=== PATIENT | female | born 1950 | race African-American/Black ===

== ENCOUNTER 2019-03-15 09:06 | Inpatient (IN) | payer MEDICARE, OTHER ==
[~2019-03-15] VITALS: Ht 160 cm; Wt 79.4 kg
--- NOTE | ~2019-03-15 | HEMODYNAMI ---
PATIENT:JOSE CABALLERO MEDICAL RECORD: [id number] : 50 [id number] ADMISSION DATE: 03/15/19 Generatedon:03/16/20197:31 Patient name: JOSE CABALLERO Patient #: [id number] SSN: : 1950 Date of study: 03/15/2019 Page: Of Hemodynamic Procedure Report Patient Data Patient Demographics Procedure consent was obtained First Name: JOSE Gender: Female Last Name: FEDERICO : 1950 Patient #: [id number] Age: 68 year(s) Race: Black Additional ID: [id number] Contact details [address]: [address] [place] [address] State: [place] City: [place] Zip code: [address] Past Medical History Allergies: No known allergies Admission Admission Data Admission Date: 03/15/2019 Admission Time: 12:02 Arrival Date: 03/15/2019 Arrival Time: 0:00 Admit Source: Emergency Insurance Payor: Medicare department [facility] #: [id number] Room #: D.2115 Height (in.): 63 BSA: 1.83 (m2) Height (cm.): 160.02 BMI: 31.06 (kg/m2) Weight (lbs.): 175.36 Weight (kg.): 79.54 Lab Results Lab Result Date: 03/15/2019 Lab Result Time: 0:00 Biochemistry Name Units Result Min Max BUN mg/dl 19 --(----)*- 7 18 Creatinine mg/dl 1.5 --(----)-* 0.6 1.3 eGFR ml/min 44 *-(----)-- 90 120 AM CBC Name Units Result Min Max Hematocrit % 37.5 *-(----)-- 42 54 Hemoglobin g/dl 12.2 *-(----)-- 13.5 17.5 Procedure Procedure Types Cath Procedure Diagnostic Procedure [facility] w/Coronaries w/Grafts Sedation Charges Moderate Sedation up to 15 minutes PCI Procedure AMI/SVG/SCHEDULE CHECKER PTCA or Stent SVG-BMS/GONZÁLEZ Initial Hemochron ACT Test Procedure Description Procedure Date Procedure Date: 03/15/2019 Procedure Start Time: 11:09 Procedure End Time: 11:37 Procedure Staff Name Function Tonio Mccray MD Performing Physician [facility]uyita Sutton [facility] Monitor Ksenia Nieves RN Nurse Cristy Loredo RT Monitor Procedure Data Cath Procedure Fluoroscopy Diagnostic fluoroscopy Total fluoroscopy Time: 4.6 time: 4.6 min min Diagnostic fluoroscopy Total fluoroscopy dose: 853 dose: 853 mGy mGy Contrast Material Contrast Material Type Amount (ml) Isovue 370 128 Entry Location Entry Primary Successful Side Size Upsize Upsize Entry Closure Succes sful Closure Location (Fr) 1 (Fr) 2 (Fr) Remarks Device Remarks Femoral Right 5 Fr 6 Fr Exoseal artery Short Estimated blood loss: 10 ml Diagnostic catheters Device Type Used For End Catheter Placement MULTIPACK JL 4.0 5Fr Procedure catheter MULTIPACK 3DRC 5Fr Procedure catheter MULTIPACK Pigtail 5 Fr Procedure catheter Procedure Complications No complications Procedure Medications Medication Administration Route Dosage 0.9% NaCl I.V. 100 ml/hr Oxygen etCO2 Nasal cannula 2 l/min Lidocaine 2% added to field 20 Heparin Flush Bag added to field 2 bags (1000units/500ml NS) Versed I.V. 2 mg Fentanyl I.V. 50 mcg Heparin Bolus I.V. 5000 units Integrilin (Bolus I.V. 6.2 ml 2mg/ml) Integrilin (Bolus wasted 3.8 ml 2mg/ml) Fentanyl I.V. 50 mcg Cardene I.C. 300 mcg Hemodynamics Rest HGB: 12.2 (g/dl) Heart Rate: 81 (bpm) Pressure Samples Time Site Value (mmHg) Purpose Heart Use Rate(bpm) 11:16 LV 140/18,26 Snapshot 86 Snapshots Pre Cath Intra NCS Post Cath Vital Signs Time Heart Resp SPO2 etCO2 NIBP (mmHg) Rhythm Pain Sedation Rate (ipm) (%) (mmHg) Status Level (bpm) 10:48:31 88 21 98 30 154/95(138) NSR 0 (11) 10(A) , No pain 10:52:45 88 14 100 29.3 151/80(125) NSR 0 (11) 10(A) , No pain 10:57:05 93 12 99 29 131/76(102) NSR 0 (11) 10(A) , No pain 11:01:24 78 13 100 29 123/71(99) NSR 0 (11) 10(A) , No pain 11:05:39 76 11 100 28 125/68(97) NSR 0 (11) 10(A) , No pain 11:09:51 81 14 100 27 120/76(103) NSR 0 (11) 10(A) , No pain 11:14:36 84 12 100 33 121/94(113) NSR 0 (11) 10(A) , No pain 11:18:44 90 13 100 24.8 116/86(104) NSR 0 (11) 9(A) , No pain 11:22:54 79 12 100 27.8 124/74(105) NSR 0 (11) 9(A) , No pain 11:27:53 86 13 100 11.2 Measuring NSR 0 (11) 9(A) , No pain 11:27:57 84 13 100 26.3 120/75(99) NSR 0 (11) 10(A) , No pain 11:32:46 82 15 100 30 121/92(105) NSR 0 (11) 10(A) , No pain 11:36:58 89 16 100 28.5 130/75(105) NSR 0 (11) 10(A) , No pain Medications Time Medication Route Dose Verified Delivered Reason Notes Effectiveness by by 10:47:33 0.9% NaCl I.V. 100 Tonio Jeonga used for ml/hr Mahendra Ezequiel procedure MD AMANDA 10:47:40 Oxygen etCO2 2 Tonio Ksenia used for Nasal l/min Mahendra Ezequiel procedure cannula MD AMANDA 10:47:45 Lidocaine 2% added 20ml Tonio Elizalde for local to vial [facility] anesthetic field MD ROBLES 10:47:51 Heparin Flush added 2 Tonio Tonio used for Bag to bags [facility] procedure (1000units/500ml field MD ROBLES NS) 11:08:21 Versed I.V. 2 mg Tonio Jeonga for sedation St Koffi Nieves MD, RN 11:08:33 Fentanyl I.V. 50 Tonio Mccormack for sedation [facility] Koffi Nieves MD RN 11:13:35 Fentanyl I.V. 50 Tonio Mccormack for sedation [facility] Koffi Nieves MD RN 11:19:54 Heparin Bolus I.V. 5000 Tonio Mccormack for verif ied units Rutledge Ezequiel anticoagulation with Dr. ROBLES RN [place] 11:20:11 Integrilin I.V. 6.2 Tonio Jeonga for (Bolus 2mg/ml) ml St Koffi Nieves antiplatelet RN therapy 11:20:27 Integrilin wasted 3.8 Tonio Mccormack for (Bolus 2mg/ml) ml St Koffi Nieves antiplatelet RN therapy 11:29:34 Cardene I.C. 300 Tonio Elizalde for mcg [facility] Koffi vee MD, MD Procedure Log Time Note 10:13:45 Informed consent obtained and on chart 10:14:04 Procedure Status Elective Heart Cath (OP). 10:14:05 Time tracking: Regular hours (M-F 7:00 - 5:00) 10:14:08 Plan of Care:Hemodynamics will remain stable., Cardiac rhythm will remain stable., Comfort level will be maintained., Respiratory function will remain adequate., Patient/ family verbilizes understanding of procedure., Procedure tolerated without complication., Recovers from procedure without complications.. 10:14:15 H&P Date Dictated: 03/15/2019 ER History on chart.. 10:23:20 Risk of Mortality: .1 10:23:23 Risk of blood transfusion: 2.6 10:23:26 Risk of AUTUMN: 2.5 10:23:37 Lab results completed and on chart. 10:23:40 Stress Test: no; N/A ? 10:24:28 Lab Result : Hemoglobin 12.2 g/dl 10:24:28 Lab Result : Hematocrit 37.5 % 10:24:28 Lab Result : BUN 19 mg/dl 10:24:28 Lab Result : Creatinine 1.5 mg/dl 10:29:05 Lab Result : eGFR AM 44 ml/min 10:30:40 Admit Source: Emergency department 10:30:50 Diagnostic Cath Status : Emergency 10:31:10 Patient allergic to No known allergies 10:31:52 Ashlee Taveras RT(R) sent for patient. Start room use. 10:33:11 Arrival Date: 03/15/2019 12:00:00 AM 10:33:27 Insurance Payor : Medicare 10:33:56 Patient Height : 63 inches 10:34:00 Patient Weight : 175.36 lbs 10:44:01 Patient received from ED to CCL 1 Alert and oriented. Tansferred to table in Supine position. 10:44:02 Correct patient and procedure confirmed by team. 10:44:02 Warm blankets applied, and sudarshan hugger turned on for patient comfort. 10:44:03 ECG and BP/O2 sat monitors applied to patient. 10:44:05 Pre-op teaching completed and patient verbalized understanding. 10:44:05 Pre-procedure instructions explained to patient. 10:44:07 Family in waiting room. 10:44:11 Patient NPO since Breakfast. 10:44:13 Is the patient allergic to Iodine/contrast media? No. 10:44:14 Was the patient premedicated? Yes 10:44:17 Is patient on blood thinner?No 10:44:19 Patient diabetic? Yes. 10:44:21 If diabetic: On Metformin? Yes 10:44:28 If on Metformin: Last Dose? 03/14/2019 10:44:35 ----Pre-sedation anethsthesia assessment.---- 10:44:39 Snore? Yes 10:44:39 Previous problem with sedation/anesthesia? No ? 10:44:41 Sleep apnea? No 10:44:42 Deviated septum? No 10:44:43 Opens mouth fully? Yes 10:44:45 Sticks out tongue? Yes 10:44:47 Airway obstruction? No ? 10:44:51 Dentures? Yes IN TIGHT 10:45:03 IV patent on arrival in right antecubital with 0.9% NaCl at [facility]. 10:45:06 Alarms reviewed by R. N. 10:45:07 Sharps counted by scrub and verified by R.N. 10:47:24 Vital chart was started 10:47:33 0.9% NaCl 100 ml/hr I.V. was administered by Ksenia Nieves RN; used for procedure; Verbal order read back and verified. 10:47:40 Oxygen 2 l/min etCO2 Nasal cannula was administered by Ksenia Nieves RN; used for procedure; Verbal order read back and verified. 10:47:45 Lidocaine 2% 20ml vial added to field was administered by Tonio Mccray MD; for local anesthetic; Verbal order read back and verified. 10:47:51 Heparin Flush Bag (1000units/500ml NS) 2 bags added to field was administered by Tonio Mccray MD; used for procedure; Verbal order read back and verified. 10:49:35 Pre procedure: right dorsailis pedis pulse 2+ Normal; easily identifiable; not easily obliterated 10:49:53 Patient pain scale 0/10 ?. 10:49:59 Right groin area was prepped with chlora-prep and draped in sterile fashion 10:50:11 Baseline sample Acquired. 10:50:15 Rhythm: sinus rhythm 10:50:18 Full Disclosure recording started 10:50:22 Use device set Femoral Dx 10:50:23 ACIST Syringe (46579) opened to sterile field. 10:50:24 Bag Decanter (2002S) opened to sterile field. 10:50:25 Medline Cath Pack ([id number]) opened to sterile field. 10:50:27 ACIST Hand Control (60789) opened to sterile field. 10:50:28 ACIST Manifold (71800) opened to sterile field. 10:50:29 DIAGNOSTIC Multipack 5Fr catheter set (FM8749) opened to sterile field. 10:50:30 EMERALD Guide Wire (701-230) opened to sterile field. 10:50:30 SHEATH 5FR [place] (LYI103) opened to sterile field. 11:07:53 --------ALL STOP TIME OUT------ 11:07:54 Final Timeout: patient, procedure, and site verified with staff and physician. All members of the team are in agreement. 11:08:21 Versed 2 mg I.V. was administered by Ksenia Nieves RN; for sedation; Verbal order read back and verified. 11:08:33 Fentanyl 50 mcg I.V. was administered by Ksenia Nieves RN; for sedation; Verbal order read back and verified. 11:08:55 A MULTIPACK JL 4.0 5Fr catheter was advanced over the wire and used for Procedure. 11:08:55 Right groin site verified by team. 11:08:56 Fire Safety Assessment: A--An alcohol-based skin anteseptic being used preoperatively., C--Open oxygen or nitrous oxide is being used., D--An ESU, laser, or fiber-optic light is being used. 11:08:58 Physical assessment completed. ASA score P 2 - A patient with mild systemic disease as per Tonio Mccray MD. 11:09:05 3a) 45-59 Moderately reduced kidney function. 11:09:08 Maximum allowable contrast dose (3.7 X eGFR X 0.75)122 ml. 11:09:14 Sedation plan: IV Moderate Sedation Medication:Versed, Fentanyl 11:09:27 Local anesthetic to right femoral artery with Lidocaine 2% by Tonio Mccray MD.INITIAL ACCESS ONLY 11:09:36 A 5 Fr sheath was inserted into the Right Femoral artery 11:12:16 LCA angiography performed. 11:12:18 Catheter removed. 11:12:24 A MULTIPACK 3DRC 5Fr catheter was advanced over the wire and used for Procedure. 11:13:16 RCA angiography performed. 11:13:28 ACCDominant side:Right 11:13:35 Fentanyl 50 mcg I.V. was administered by Ksenia Nieves RN; for sedation; Verbal order read back and verified. 11:14:02 SVG to Circ angiography performed. 11:14:43 SVG to Diag angiography performed. 11:15:27 TRENT to LAD angiography performed. 11:15:37 Catheter removed. 11:15:42 A MULTIPACK Pigtail 5 Fr catheter was advanced over the wire and used for Procedure. 11:17:08 Injector settings: Ml/sec: 5, Volume: 15, 11:17:09 LV hemodynamics recorded. 11:17:11 LV gram done using AUGUSTINE 11:17:15 EF : 50 % 11:18:28 SHEATH 6FR [place] (ECZ779) opened to sterile field. 11:18:30 INFLATOR Merit BasixCompak (IR1271) opened to sterile field. 11:18:31 WHISPER 300cm guide wire ([id number]) opened to sterile field. 11:18:32 Catheter removed. 11:18:33 Proceeding to intervention. 11:18:39 Sheath upsized to a 6 Fr Short. 11:19:17 GUIDE 6FR JR 4.0 catheter (GT0CD81) opened to sterile field. 11:19:29 6 Fr JR 4.0 guide catheter was inserted over the wire 11:19:54 Heparin Bolus 5000 units I.V. was administered by Ksenia Nieves RN; for anticoagulation; verified with Dr. Hernandez Verbal order read back and verified. 11:20:11 Integrilin (Bolus 2mg/ml) 6.2 ml I.V. was administered by Ksenia Nieves RN; for antiplatelet therapy; Verbal order read back and verified. 11:20:27 Integrilin (Bolus 2mg/ml) 3.8 ml wasted was administered by Ksenia Nieves RN; for antiplatelet therapy; Verbal order read back and verified. 11:21:28 Pre PCI Site: Vein Graft Diag1 has 80% stenosis. 11:22:41 WHISPER 300 wire advanced. 11:22:47 Wire advanced across lesion. 11:26:45 Place stent Inflation Number: 1 A TAMIKO RX 3.5 x 12 stent ([id number]) was prepped and advanced across the Aorta Left -> 1st Diag . The stent was deployed at 14 ELIOT for 0:00 (min:sec) . 11:29:34 Cardene 300 mcg I.C. was administered by Tonio Mccray MD; for vasodilation; Verbal order read back and verified. 11:30:16 Stent catheter was removed intact over wire. 11:30:17 Guide catheter removed. 11:30:17 Wire removed. 11:30:23 EXOSEAL 6Fr (EX600) opened to sterile field. 11:30:40 Sheath removed intact; hemostasis achieved with Exoseal to the Right Femoral artery. 11:31:20 Procedure ended.(Physican Out) 11:31:25 Fluoroscopy time 04.60 minutes. :31:30 Fluoroscopy dose: 853 mGy 11:31:30 Flurop Dose total: 853 11:31:36 Dose Area Product 64470 mGy/cm. 11:31:45 Contrast amount:Isovue 370 128ml. 11:31:47 Maximum allowable dose exceeded? Yes. 11:31:48 Sharps counted by scrub and verified by R.N. 11:31:57 Post-op/insertion site Right Femoral artery dressed using a 4 x 4 and Tegaderm. 11:32:04 Post right femoral artery:stable, soft, clean and dry 11:32:12 Post Procedure Pulses reassessed and unchanged 11:32:15 Post procedure: right dorsailis pedis pulse 2+ Normal; easily identifiable; not easily obliterated. 11:32:19 Post-procedure physical assessment completed. ASA score P 2 - A patient with mild systemic disease as per Tonio Mccray MD. 11:32:24 Post procedure rhythm: unchanged. 11:32:28 Estimated blood loss: 10 ml 11:32:30 Post procedure instruction explained to patient.Patient verbalizes understanding. 11:32:31 Patient needs reinforcement of post procedure teaching. 11:33:11 ACT drawn and resulted at 255 seconds. (normal therapeutic range 180-240 seconds). 11:36:20 Procedure type changed to Cath procedure, Diagnostic procedure, LHC, LHC w/Coronaries w/Grafts, Sedation Charges, Moderate Sedation up to 15 minutes, PCI procedure, AMI/SVG/SCHEDULE CHECKER PTCA or Stent, SVG-BMS/GONZÁLEZ Initial, Hemochron ACT Test 11:36:29 Procedure Complication : No complications 11:36:33 [facility] Findings: MVD- PCI performed (see procedure note) 11:36:35 Operative report dictated upon procedure completion. 11:36:36 See physician's report for complete and final results. 11:36:38 Report given to Pre/Post Procedure Room. 11:36:50 Patient transfered to [facility] with Bed. 11:37:19 Procedure and supply charges have been captured, reviewed, submitted and are correct. 11:37:25 Procedure ended. 11:37:25 Full Disclosure recording stopped 11:37:32 ACC-PCI Only Patient was given prescriptions, or instructed by Tonio Mccray MD to start/continue the following medications upon discharge: Plavix 11:37:34 End room use (Document Last) 11:37:52 End room use (Document Last) 11:38:15 End room use (Document Last) 11:38:59 Vital chart was stopped Intervention Summary Intervention Notes Time ActionType Lesion and Equipment Used Action# Pressure Duration Attributes 11:26:45 Place stent Aorta Left TAMIKO RX 3.5 x 1 14 00:00 -> 1st Diag 12 stent ([id number]) Device Usage Item Name Manufacture Quantity Catalog Hospital Part Current [facility] Lot# / Number Charge Number Stock Stock Serial# Code ACIST Syringe Acist 1 19693 625340 946130 218769 20 (80185) [employer] Systems Inc Bag Decanter Microtek 1 2002S 486781 92846 772318 5 (2001S) Medical Inc. Medline Cath Medline 1 [id number] 216037 78793 662426 5 Pack ([id number]) ACIST Hand Acist 1 42648 530533 836525 280575 5 Control Medical (23388) Systems Inc ACIST Manifold Acist 1 72567 557702 799898 438873 5 (67946) Medical Systems Inc DIAGNOSTIC Cardinal 1 HQ2536 121671 35604 434671 30 Multipack 5Fr Health catheter set (SS2486) SHEATH 5FR Terumo 1 SQE067 987994 187919 365021 5 [place] (PPL308) EMERALD Guide Cardinal 1 502-455 986942 790833 172098 5 Wire (502-455) Health MULTIPACK JL Cardinal 1 795410 5 4.0 5Fr Health catheter MULTIPACK 3DRC Cardinal 1 913176 5 5Fr catheter Health MULTIPACK Cardinal 1 909547 5 Pigtail 5 Fr Health catheter SHEATH 6FR Terumo 1 UJL751 021852 098724 049542 40 [place] (IOR382) INFLATOR Merit Merit 1 SX7477 832486 632232 848169 15 [facility] Medical (ZR1866) WHISPER 300cm [place] 1 [id number] 395306 278685 574234 5 guide wire Vascular ([id number]) GUIDE 6FR JR Medtronic 1 [id number] 504205 09412 696313 1 4.0 catheter (MV0HD56) TAMIKO RX 3.5 x Medtronic 1 [id number] 013813 5366964 809890 5 [id number] 12 stent ([id number]) EXOSEAL 6Fr Cardinal 1 EX600 555943 020576 101867 10 (EX600) Health Signature Audit Gilman Stage Time Signature Unsigned Intra-Procedure 03/15/2019 Cristy Loredo 11:37:52 AM RT(R) Intra-Procedure 03/15/2019 Ksenia Nieves 11:38:15 AM RN Intra-Procedure 03/15/2019 Tonio Mccray MD 11:38:57 AM Koffi ROBLES 03/16/2019 7:30:07 AM Intra-Procedure 03/16/2019 Cristy Loredo 7:30:59 AM RT(R) Intra-Procedure 03/16/2019 Tonio Pryor 7:31:20 AM Koffi ROBLES [place] [id number] [facility] [place] [address]
[2019-03-15] MEDS ORDERED: BUMETANIDE0.5 MG PO (09:09)
[2019-03-15] MEDS ORDERED: GLUCOPHAGE1000 MG PO (09:09)
[2019-03-15] MEDS ORDERED: ASPIRIN EC81 M1 PO (09:09)
[2019-03-15] MEDS ORDERED: LISINOPRIL40 MG PO (09:09)
[2019-03-15] MEDS ORDERED: LIPITOR10 MG PO (09:09)
[2019-03-15] MEDS ORDERED: PROTONIX40 MG PO (09:10)
[2019-03-15] MEDS ORDERED: TOPROL XL50 MG PO (09:10)
[2019-03-15] MEDS ORDERED: PROCARDIA XL60 MG PO (09:10)
[2019-03-15] MEDS ORDERED: TESSALON PERLE100 MG PO (09:10)
[2019-03-15] MEDS ORDERED: K-DUR20 MEQ PO (09:10)
[2019-03-15 09:24] VITALS: BP 177/90
[2019-03-15 10:08] VITALS: BP 149/75
[2019-03-15 10:12] LABS: INR 0.92 (0.85-1.17); PROTIME 12.3 SECONDS (11.6-15.0)
[2019-03-15 10:14] LABS: CALC OSMOLALITY 285 mosm/kg (275-300); CALCIUM 9.3 mg/dL (8.5-10.1); CARBON DIOXIDE 28.5 mmol/L (21.0-32.0); CHLORIDE - SERUM 106 mmol/L (98-107); CREATININE - SERUM 1.5 mg/dL (0.6-1.3); GLUCOSE 146 mg/dL (74-106); SODIUM 141 mmol/L (136-145); UREA NITROGEN 19 mg/dL (7-18); eGFR NON AFRICAN AMERICAN 37 mL/min (90-120)
[2019-03-15 10:16] LABS: BASOPHILS 0.2 % (0-2); EOSINOPHILS 6.5 % (0-7); HEMATOCRIT 37.5 % (36.0-48.0); HEMOGLOBIN 12.2 g/dL (12-16); IMMATURE GRANULOCYTES 0.3 % (0-5); LYMPHOCYTES 41.6 % (15-50); MCH 29.5 pg (26.0-34.0); MCHC 32.5 g/dL (31.0-37.0); MCV 90.8 fL (80.0-100.0); MEAN PLATELET VOLUME 10.8 fL (7.4-10.4); MONOCYTES 8.8 % (2-11); NEUTROPHILS 42.6 % (40-80); PLATELET COUNT 295 10x3/uL (130-400); RBC 4.13 10x6/uL (4.00-5.40); RDW 15.2 % (11.5-14.5); WBC 9.7 10x3/uL (4.8-10.8)
[2019-03-15 10:37] LABS: ALBUMIN 3.6 g/dL (3.4-5.0); ALKALINE PHOSPHATASE 73 U/L (46-116); ALT (SGPT) 38 U/L (10-68); BILIRUBIN - TOTAL 0.47 mg/dL (0.2-1.3); CKMB 1.9 U/L (0.0-3.6); CREATINE KINASE 126 UL (21-215); MAGNESIUM - SERUM 1.7 mg/dL (1.8-2.4); PRO BNP 5835 pg/mL (0-125)
[2019-03-15 10:50] LABS: CHOL - HDL RATIO 3.4 ratio (2.3-4.1)
--- NOTE | 2019-03-15 12:08 | NUR ---
RECIEVED FROM [employer] BY BED. VS WNL. RIGHT GROIN STABLE WITHOUT BLEEDING OR HEMATOMA NOTED. WILL MONITOR.
[2019-03-15 12:22] VITALS: BP 134/65; BMI 31.0
--- NOTE | 2019-03-15 13:45 | NUR ---
LEAVING FOR NM BY BED FOR V-Q SCAN.
[2019-03-15 18:25] VITALS: BP 129/82
--- NOTE | 2019-03-15 19:30 | NUR ---
RECEIVED BEDSIDE REPORT. PATIENT ALERT AND ORIENTED, RESTING COMFORTABLY IN BED. RESPIRATION ARE EVEN AND UNLABORED. NO S/S OF DISTRESS. NO C/O PAIN. CALL LIGHT WITHIN REACH. WILL CPOC.
[2019-03-15 23:46] VITALS: BP 147/57
--- NOTE | 2019-03-16 00:34 | NUR ---
RESTING WITH EYES CLOSED, RESPERATIONS EVEN, NO S/S DISTRESS NOTED.
[2019-03-16 04:00] VITALS: BP 126/71
[2019-03-16 06:07] LABS: ALBUMIN 2.9 g/dL (3.4-5.0); BILIRUBIN - TOTAL 0.55 mg/dL (0.2-1.3); CALCIUM 8.4 mg/dL (8.5-10.1); CARBON DIOXIDE 25.9 mmol/L (21.0-32.0); CREATININE - SERUM 1.4 mg/dL (0.6-1.3); POTASSIUM - SERUM 3.9 mmol/L (3.5-5.1); PROTEIN - SERUM 6.8 g/dL (6.4-8.2)
--- NOTE | 2019-03-16 07:15 | NUR ---
RECEIVED PT IN BED AAOX4 RESP UNLABORED SKIN W/D COLOR WNL PT DENIES ANY PAIN OR NEEDS AT THIS TIME NAD NOTED
[2019-03-16 07:27] LABS: BASOPHILS 0.3 % (0-2); EOSINOPHILS 12.1 % (0-7); HEMATOCRIT 33.4 % (36.0-48.0); HEMOGLOBIN 10.7 g/dL (12-16); IMMATURE GRANULOCYTES 0.1 % (0-5); LYMPHOCYTES 36.5 % (15-50); MCH 29.2 pg (26.0-34.0); MEAN PLATELET VOLUME 11.3 fL (7.4-10.4); MONOCYTES 13.9 % (2-11); NEUTROPHILS 37.1 % (40-80); PLATELET COUNT 265 10x3/uL (130-400); RBC 3.67 10x6/uL (4.00-5.40); RDW 15.4 % (11.5-14.5); WBC 7.6 10x3/uL (4.8-10.8)
[2019-03-16 09:48] VITALS: BP 162/70
--- NOTE | 2019-03-16 13:25 | OP ---
PATIENT NAME: JOSE CABALLERO MEDICAL RECORD: [id number] :50 LOCATION:D.M2 D.2115 ADMISSION DATE:03/15/19 SURGEON: NADINE CHURCHILL MD DATE OF OPERATION: 03/15/2019 PROCEDURE: Left heart catheterization, selective coronary angiography, bypass graft, stenting to the saphenous vein graft to diagonal, right femoral artery approach. CATHETERS: A 5-Setswana sheath, 5/4 left and right Simon, 5/4 pig. The procedure was well tolerated. We proceeded with PTCA stenting as procedure was finished . FINDINGS: Left ventriculography in 30-degree AUGUSTINE view shows mild anterior apical hypokinesis. LV function, normal EF better than 50%. CORONARY ANATOMY: LEFT MAIN: Left main for a short period of time is seen filling via competitive flow from the TRENT. CIRCUMFLEX: Fills for a short period of time, though slightly occluded. RIGHT CORONARY ARTERY: Right coronary artery is a large vessel, free of disease. BYPASS GRAFTS 1. TRENT to LAD is widely patent. There is some distal stenosis, typical of diabetes, not amenable to intervention. Saphenous vein graft to the circumflex is widely patent throughout distally. The saphenous vein graft to diagonal shows a stenosis about 80% in its mid portion. DESCRIPTION OF PROCEDURE: A 5-Setswana sheath was exchanged for a 6-Setswana sheath. A JR guiding catheter provided good guide catheter support followed by 300 cm Whisper wire, placed across the occluded 80% stenosis graft down this portion of vessel. Stent deployed was 3.0 x 12 mm Amos drug-eluting stent up to 14 atmospheres for 45 seconds. Final angiography shows excellent resolution 80% stenosis, no significant residual. ROMAN flow was 3 throughout the procedure. Plavix was loaded preprocedure. Sheath was closed with ExoSeal device. TRANSINT:[id number] Voice Confirmation ID: [id number] DOCUMENT ID: [id number] NADINE CHURCHILL MD at 1325 CC: [id number] DICTATION DATE: 03/15/19 1158 [employer] WARDEN: 03/15/19 1603 ADM IN [place] [id number] [place] [address]
--- NOTE | 2019-03-16 13:25 | CN ---
PATIENT NAME:JOSE CABALLERO MEDICAL RECORD: [id number] : 50 LOCATION:D.[place] D.2115 ADMIT DATE: 03/15/19 ACCOUNT: [id number] CONSULTING PHYSICIAN: NADINE CHURCHILL MD REFERRING PHYSICIAN: MALIK CRUZ MD DATE OF CONSULTATION: 03/15/2019 HISTORY OF PRESENT ILLNESS: This is a 68-year-old female with a history of coronary artery disease, status post bypass grafting, mitral repair in the same setting, transferred from [place] for a non-ST elevation myocardial infarction, found to have ST-T segments inferolaterally as well. Symptoms include dyspnea, chest tightness and pressure. We are asked to see her concerning cardiovascular status. PAST MEDICAL HISTORY: Includes: 1. History of hypertension. 2. Hyperlipidemia. 3. Diabetes mellitus. 4. Mitral valve as previously described above. 5. Coronary artery disease as described above. ALLERGIES: None known. MEDICATIONS: Include atorvastatin 10 mg every day, lisinopril 40 every day, metoprolol 50 every day, aspirin 81 every day, Bumex 1 mg every day, metformin 1 gram b.i.d., Procardia 60 mg p.o. every day. SOCIAL HISTORY: Lives in [place], nonsmoker and nondrinker. Easily able to care of all her ADLs. No set exercise program. REVIEW OF SYSTEMS: The patient reports easy bruising but reports no swollen glands. The patient reports no fever, no night sweats, no significant weight gain, no significant weight loss. No significant exercise tolerance. The patient reports no dry eyes, no irritation, no vision change. Patient reports no difficulty hearing and no ear pain. Patient reports no frequent nose bleeds or nose and sinus problems. Patient reports on arm pain on exertion. No shortness of breath while lying down. No history of heart murmur. Patient reports no cough, no wheezing or coughing up blood. Patient reports no abdominal pain, no vomiting. Normal appetite. No diarrhea and not vomiting blood. No nausea and no constipation. Patient reports no incontinence. No difficulty urinating. No hematuria. No increased frequency. Patient reports no muscle aches. No weakness, no arthralgias, no back pain. No swelling of the extremities. Patient reports no abnormal mole, no jaundice, no rashes. Reports no loss of consciousness. No weakness and no numbness. No seizures, dizziness, or headaches. The patient reports no depression, no sleep disturbance, feeling safe in a relationship and no alcohol abuse. Patient reports on fatigue. Reports no runny nose or sinus pressure. No itching, no hives, and no frequent sneezing. PHYSICAL EXAMINATION: GENERAL: Well-developed, well-nourished, no acute distress, appears stated age. VITAL SIGNS: Blood pressure 149/75, pulse 85, frequent extrasystoles. HEENT: Normocephalic, atraumatic. NECK: No bruits noted. HEART: Regular, II/ systolic ejection murmur, frequent extrasystoles are CONSULT REPORT [id number] JOSE CABALLERO noted. LUNGS: Prolonged expiratory phase, decreased breath sounds at bases. ABDOMEN: Soft, nontender. EXTREMITIES: Pulse 2+. No edema. DIAGNOSTIC DATA: EKG shows nonspecific ST-T changes inferolaterally. IMPRESSION: Non-ST segment elevation myocardial infarction. PLAN: For angiography, intervention based on above. TRANSINT:[id number] Voice Confirmation ID: [id number] DOCUMENT ID: [id number] NADINE CHURCHILL MD at 1325 CC: [id number] DICTATION DATE: 03/15/19 1152 DIRECTOR CARDIOLOGY: 03/15/19 1542 ADM IN [place] [id number] [place] [id number]
[2019-03-16 13:44] VITALS: BP 103/70
[2019-03-16 13:59] VITALS: BMI 31.0
--- NOTE | 2019-03-16 14:48 | NUR ---
ASSUMED CARE OF PATIENT. VARGAS NEEDS AT THIS TIME.
[2019-03-16 15:52] VITALS: Ht 160 cm; Wt 79.4 kg
[2019-03-16 16:06] LABS: % SATURATION 12 % (15-55); IRON 28 ug/dl (35-150); TOTAL IRON BIND CAPACITY 219 ug/dl (260-445); UNSAT IRON BIND CAPACITY 191 ug/dl (150-375)
[2019-03-16 17:09] VITALS: BP 151/77
[2019-03-16 17:31] LABS: APPEARANCE CLEAR (CLEAR); BILIRUBIN NEGATIVE (NEGATIVE); COLOR STRAW (YELLOW); GLUCOSE NEGATIVE (NEGATIVE); KETONE NEGATIVE (NEGATIVE); NITRITE NEGATIVE (NEGATIVE); PROTEIN NEGATIVE (NEGATIVE); SPECIFIC GRAVITY 1.005 (1.005-1.020); UROBILINOGEN NORMAL (NORMAL)
--- NOTE | 2019-03-16 19:30 | NUR ---
RECEIVED BEDSIDE REPORT. PATIENT IS ALERT AND ORIENTED, RESTING COMFORTABLY IN BED. RESPIRATIONS ARE EVEN AND UNLABORED. NO S/S OF DISTRESS. NO C/O PAIN. CALL LIGHT WITHIN REACH. WILL CPOC.
[2019-03-16 20:00] VITALS: BP 148/94
[2019-03-17] VITALS: BP 108/66
--- NOTE | 2019-03-17 02:31 | NUR ---
PATIENT RESTING COMFORTABLY. RESPIRATIONS ARE EVEN AND UNLABORED. NO S/S OF DISTRESS. CALL LIGHT WITHIN REACH. WILL CPOC.
[2019-03-17 04:00] VITALS: BP 140/84
[2019-03-17 06:37] LABS: BASOPHILS 0.1 % (0-2); EOSINOPHILS 11.5 % (0-7); HEMATOCRIT 34.7 % (36.0-48.0); HEMOGLOBIN 11.1 g/dL (12-16); IMMATURE GRANULOCYTES 0.1 % (0-5); LYMPHOCYTES 36.9 % (15-50); MCH 29.2 pg (26.0-34.0); MCV 91.3 fL (80.0-100.0); MEAN PLATELET VOLUME 10.9 fL (7.4-10.4); MONOCYTES 17.7 % (2-11); NEUTROPHILS 33.7 % (40-80); PLATELET COUNT 245 10x3/uL (130-400); RDW 15.6 % (11.5-14.5); WBC 7.1 10x3/uL (4.8-10.8)
[2019-03-17 06:55] LABS: ANION GAP 10.3 mmol/L (8-16); CALCIUM 8.6 mg/dL (8.5-10.1); CARBON DIOXIDE 25.8 mmol/L (21.0-32.0); CREATININE - SERUM 1.4 mg/dL (0.6-1.3); POTASSIUM - SERUM 4.1 mmol/L (3.5-5.1)
--- NOTE | 2019-03-17 09:44 | NUR ---
RECEIVED PT IN BED AAOX4 RESP UNLABORED SKIN W/D COLOR WNL DENIES ANY NEEDS OR DISCOMFORT AT THIS TIME
[2019-03-17 09:46] VITALS: BP 109/73
[2019-03-17] MEDS ORDERED: PLAVIX75 MG PO (12:22)
--- NOTE | 2019-03-17 12:38 | MORECARE ---
CASE MANAGEMENT DISCHARGE SUMMARY PATIENT: JOSE CABALLERO UNIT: [id number] ADM DATE: 03/15/19 AGE: 68 : 50 SEX: F ROOM/BED: D.1215 AUTHOR: STEWDOC PHYSICIAN: REFERRING PHYSICIAN: MALIK CRUZ MD DATE OF SERVICE: 03/17/19 Discharge Plan Patient Name: JOSE CABALLERO Facility: [facility]:[place] : 1950 Planned Disposition: Home Anticipated Discharge Date: Discharge Date: Expected LOS: Initial Reviewer: [id number] Initial Review Date: 03/17/2019 Generated: 03/17/19 1:38 pm Comments DCP- Discharge Planning Updated by [email or web address]: Agnes Quinonez on 03/17/19 11:[address] Patient Name: JOSE CABALLERO Admission Status: ER Accout number: [id number] Admission Date: 03-15-2019 : 1950 Admission Diagnosis: Attending: MALIK CRUZ Current LOS: 2 Anticipated DC Date: Planned Disposition: Home Primary Insurance: MEDICARE A & B Discharge Planning Comments: CM MET WITH PATIENT AFTER OBTAINING VERBAL CONSENT. STATES PLANS TO DC TO HOME. DENIES NEEDS FOR HH, REHAB OR EQUIPMENT. STATES SHE WILL CALL SOMEONE TO PICK HER UP. Engineer [employer]: Agnes Quinonez DCPIA - Discharge Planning Initial Assessment Updated by [id number]: Agnes Quinonez on 03/17/19 12:32 pm * Is the patient Alert and Oriented? Yes * Preadmission Environment Home with Family * ADLs Independent * Other Equipment NONE * Please name any agencies selected above. NONE * Additional services required to return to the preadmission environment? No * Can the patient safely return to the preadmission environment? Yes * Has this patient been hospitalized within the prior 30 days at any hospital? No Coverage Notice Reviewer: [id number] - Agnes Quinonez Notice Issued Date-Time: 03/17/2019 12:30 Notice Type: IM Discharge Notice Notice Delivered To: Patient Relationship to Patient: Business Management Professor Name: Delivery Method: HAND - Hand Delivered [place]ima Days: Prior Verbal Notification: Recipient Understood Notice: Yes Recipient Signature: Yes Med Rec Note Co-signed by Attending: Coverage Notice Comment: Patient Name: JOSE CABALLERO Page [id number] at 1238 All edits/amendments must be made on the electronic document DICTATION DATE: 03/17/19 1238 MEETING FACILITATOR: TRESSA 03/17/19 1238 RPT#: [id number] DC DATE: STATUS: ADM IN [facility] [address] [place] [address] END OF REPORT
[2019-03-17 14:56] VITALS: BP 127/79
--- NOTE | 2019-03-17 16:00 | NUR ---
REVIEWED DISCHARGE INSTRUCTIONS WITH PT STATES UNDERSTANDING COPY GIVEN DCD SALINE LOCK TO RAC WITH IV CATHETER INTACT SITE FREE OF REDNESS OR EDEMA PT DISCHARGED HOME IN STABLE CONDITION VIA W/C WITH ALL PERSONAL BELONGINGS
--- NOTE | 2019-03-17 17:08 | MORECARE ---
CASE MANAGEMENT DISCHARGE SUMMARY PATIENT: JOSE CABALLERO UNIT: [id number] ADM DATE: 03/15/19 AGE: 68 : 50 SEX: F ROOM/BED: D.4075 AUTHOR: STEWDOC PHYSICIAN: REFERRING PHYSICIAN: MALIK CRUZ MD DATE OF SERVICE: 03/17/19 Discharge Plan Patient Name: JOSE CABALLERO Facility: [facility]:[place] : 1950 Planned Disposition: Home Anticipated Discharge Date: Discharge Date: 03/17/2019 Expected LOS: Initial Reviewer: [email or web address] Initial Review Date: 03/17/2019 Generated: 03/17/19 6:07 pm Comments DCP- Discharge Planning Updated by [email or web address]: Agnes Quinonez on 03/17/19 11:[address] Patient Name: JOSE CABALLERO Admission Status: ER Accout number: [id number] Admission Date: 03-15-2019 : 1950 Admission Diagnosis: Attending: MALIK CRUZ Current LOS: 2 Anticipated DC Date: Planned Disposition: Home Primary Insurance: MEDICARE A & B Discharge Planning Comments: CM MET WITH PATIENT AFTER OBTAINING VERBAL CONSENT. STATES PLANS TO DC TO HOME. DENIES NEEDS FOR HH, REHAB OR EQUIPMENT. STATES SHE WILL CALL SOMEONE TO PICK HER UP. Supervisor [employer]: Agnes Quinonez DCPIA - Discharge Planning Initial Assessment Updated by [email or web address]: Agnes Quinonez on 03/17/19 12:32 pm * Is the patient Alert and Oriented? Yes * Preadmission Environment Home with Family * ADLs Independent * Other Equipment NONE * Please name any agencies selected above. NONE * Additional services required to return to the preadmission environment? No * Can the patient safely return to the preadmission environment? Yes * Has this patient been hospitalized within the prior 30 days at any hospital? No Coverage Notice Reviewer: [id number] - Agnes Quinonez Notice Issued Date-Time: 03/17/2019 12:30 Notice Type: IM Discharge Notice Notice Delivered To: Patient Relationship to Patient: Outpatient Facility Physical Therapist Name: Delivery Method: HAND - Hand Delivered Lima Days: Prior Verbal Notification: Recipient Understood Notice: Yes Recipient Signature: Yes Med Rec Note Co-signed by Attending: Coverage Notice Comment: Last DP export: 03/17/19 11:39 a Patient Name: JOSE CABALLERO Page [id number] at 1708 All edits/amendments must be made on the electronic document DICTATION DATE: 03/17/191706 PRINTING SIGN MACHINE OPERATOR: TRESSA 03/17/191706 RPT#: [id number] DC DATE:03/17/19 STATUS: DIS IN [facility] [address] [place] [address] END OF REPORT
== END 2019-03-17 16:00 | disposition home or self-care (01) | DRG 247 ==
LOC: D.CATH 09:06 → D.ER 09:06 → EDSTATUS 10:32 → D.M2 12:01 → D.CATH 12:02 → D.M2 03-17 16:00
PROVIDERS: Family Medicine; Internal Medicine Interventional Cardiology; ADMIT Internal Medicine Nephrology; ATTEND Internal Medicine Nephrology
PROC: B2121ZZ Fluoroscopy of Single Coronary Artery Bypass Graft using Low Osmolar Contrast (ICD-10-PCS; 2019-03-15)
PROC: B2111ZZ Fluoroscopy of Multiple Coronary Arteries using Low Osmolar Contrast (ICD-10-PCS; 2019-03-15)
PROC: B2151ZZ Fluoroscopy of Left Heart using Low Osmolar Contrast (ICD-10-PCS; 2019-03-15)
PROC: 027034Z Dilation of Coronary Artery, One Artery with Drug-eluting Intraluminal Device, Percutaneous Approach (ICD-10-PCS; principal; 2019-03-15 10:30)
PROC: 4A023N7 Measurement of Cardiac Sampling and Pressure, Left Heart, Percutaneous Approach (ICD-10-PCS; 2019-03-15 10:30)
DX: I21.4 Non-ST elevation (NSTEMI) myocardial infarction (principal); N17.9 Acute kidney failure, unspecified; D64.9 Anemia, unspecified; I10 Essential (primary) hypertension; E78.5 Hyperlipidemia, unspecified; I25.10 Atherosclerotic heart disease of native coronary artery without angina pectoris; E11.9 Type 2 diabetes mellitus without complications; D72.1 Eosinophilia